=== PATIENT | female | born 1965 | race Caucasian/White ===

== ENCOUNTER → 2017-02-24 | Outpatient (CLI) | payer OTHER ==
[~2017-02-24] MED LIST: LEVO125T5 PO
== END | disposition home or self-care (01) ==
LOC: RAD 16:40
PROVIDERS: ATTEND Nurse Practitioner Primary Care
DX: S69.91XA Unspecified injury of right wrist, hand and finger(s), initial encounter (principal); E03.9 Hypothyroidism, unspecified; R31.9 Hematuria, unspecified; R78.2 Finding of cocaine in blood; E88.1 Lipodystrophy, not elsewhere classified; G43.909 Migraine, unspecified, not intractable, without status migrainosus; M54.40 Lumbago with sciatica, unspecified side; M54.2 Cervicalgia; F32.9 Major depressive disorder, single episode, unspecified; R63.5 Abnormal weight gain; R59.9 Enlarged lymph nodes, unspecified; Z79.890 Hormone replacement therapy; X58.XXXA Exposure to other specified factors, initial encounter; Y93.89 Activity, other specified; Y92.89 Other specified places as the place of occurrence of the external cause; Y99.8 Other external cause status

== ENCOUNTER → 2017-06-30 | Outpatient (CLI) | payer OTHER | END | disposition home or self-care (01) | LOC: CFH 12:57 | PROVIDERS: ATTEND Physician Assistant | DX: Z12.31 Encounter for screening mammogram for malignant neoplasm of breast (principal) | CPT/HCPCS: G0202 ==

== ENCOUNTER → 2017-11-03 | Outpatient (CLI) | payer OTHER | END | disposition home or self-care (01) | LOC: CFH 12:50 | PROVIDERS: ATTEND Physician Assistant | DX: M25.551 Pain in right hip (principal); M25.552 Pain in left hip; E03.9 Hypothyroidism, unspecified; R31.9 Hematuria, unspecified; E78.2 Mixed hyperlipidemia; E88.81 Metabolic syndrome and other insulin resistance; G43.909 Migraine, unspecified, not intractable, without status migrainosus; M54.40 Lumbago with sciatica, unspecified side; M54.2 Cervicalgia; F32.9 Major depressive disorder, single episode, unspecified; R63.5 Abnormal weight gain; R59.9 Enlarged lymph nodes, unspecified; Z79.890 Hormone replacement therapy; S62.609D Fracture of unspecified phalanx of unspecified finger, subsequent encounter for fracture with routine healing; F06.4 Anxiety disorder due to known physiological condition; X58.XXXD Exposure to other specified factors, subsequent encounter | CPT/HCPCS: 73523 ==

== ENCOUNTER 2018-01-21 09:51 | Emergency (ER) | payer OTHER ==
[~2018-01-21] VITALS: Ht 162.6 cm; Wt 80.9 kg
[2018-01-21 09:53] VITALS: BP 155/106
[2018-01-21] MEDS ORDERED: HYDR-3307 PO (10:48)
[2018-01-21] MEDS ORDERED: MELO15TA24 PO (10:48)
[2018-01-21] MEDS ORDERED: MINO100T2 PO (10:48)
[2018-01-21] MEDS ORDERED: KETOROLAC 30 MG/1 ML ONE (10:52)
[2018-01-21] MEDS ORDERED: METHOCARBAMOL 750 MG TABLET ONE (10:52)
[2018-01-21] MEDS ORDERED: METHOCARBAMOL 750 MG TABLET PO ONE (11:00)
[2018-01-21] MEDS ORDERED: KETOROLAC 30 MG/1 ML IM ONE (11:00)
== END 2018-01-21 12:14 | disposition home or self-care (01) ==
LOC: ED 11:55
DX: S16.1XXA Strain of muscle, fascia and tendon at neck level, initial encounter (principal); G89.11 Acute pain due to trauma; M54.6 Pain in thoracic spine; M54.5 Low back pain; F17.200 Nicotine dependence, unspecified, uncomplicated; Y04.8XXA Assault by other bodily force, initial encounter; Y93.89 Activity, other specified; Y99.8 Other external cause status; Y92.89 Other specified places as the place of occurrence of the external cause
CPT/HCPCS: 72050; 72072; 72110; 96372; 99284; J1885

== ENCOUNTER 2018-12-13 17:24 | Emergency (ER) | payer OTHER ==
[~2018-12-13] VITALS: Ht 162.6 cm; Wt 84.0 kg
[~2018-12-13 17:24] MED LIST changes: +HYDR-3307 PO; +MELO15TA24 PO; +MINO100T2 PO
[2018-12-13] MEDS ORDERED: DIPHENHYDRAMINE 50 MG/ML, 1ML ONE (17:55)
[2018-12-13] MEDS ORDERED: METOCLOPRAMIDE 5 MG/ML, 2ML ONE (17:55)
[2018-12-13] MEDS ORDERED: DIPHENHYDRAMINE 50 MG/ML, 1ML IVPush ONE (18:00)
[2018-12-13] MEDS ORDERED: METOCLOPRAMIDE 5 MG/ML, 2ML IVPush ONE (18:00)
[2018-12-13] MEDS ORDERED: BUPIVACAINE/PF-EPI 0.5% 1:200K INFIL ONE ×2 (18:00→18:30)
[2018-12-13] MEDS ORDERED: SODIUM CHLORIDE 0.9% 1,000ML IVBOLUS ONE (18:00)
--- NOTE | 2018-12-13 18:55 | NUR ---
REPORT RECEIVED FROM MAGALY MACKEY. ASSUMED CARE OF PT
[2018-12-13] MEDS ORDERED: KETOROLAC 60 MG/2 ML IVPush ONE (19:00)
--- NOTE | 2018-12-13 19:05 | NUR ---
PT AMBULATED TO BATHROOM AND BACK WITH STEADY GAIT
[2018-12-13 19:22] VITALS: BP 147/80
[2018-12-13] MEDS ORDERED: KETOROLAC 30 MG/1 ML ONE (19:32)
--- NOTE | 2018-12-13 19:39 | NUR ---
PT MEDICATED PER eMAR
--- NOTE | 2018-12-13 20:06 | NUR ---
Patient/Caregiver given discharge instructions and they have confirmed that they understand the instructions. Patient ambulatory with steady gait.
== END 2018-12-13 20:08 | disposition home or self-care (01) ==
LOC: ED 18:20
DX: G44.211 Episodic tension-type headache, intractable (principal); E78.00 Pure hypercholesterolemia, unspecified
CPT/HCPCS: 64405; 96374; 96375; 99284; J1200; J1885; J2765; J7030; 64450

== ENCOUNTER 2019-04-04 10:11 | Emergency (ER) | payer OTHER ==
[~2019-04-04] VITALS: Ht 162.6 cm; Wt 82.0 kg
[2019-04-04] MEDS ORDERED: HYDROcodone/APAP 10/325 MG TABLET PO ONE (11:00)
[2019-04-04] MEDS ORDERED: KETOROLAC 30 MG/1 ML IM ONE (11:00)
[2019-04-04] MEDS ORDERED: KETOROLAC 60 MG/2 ML ONE (11:10)
[2019-04-04] MEDS ORDERED: HYDROcodone/APAP 10/325 MG TABLET ONE (11:11)
[2019-04-04 12:01] VITALS: BP 141/86
[2019-04-04] MEDS ORDERED: PARO37.52 PO (12:10)
--- NOTE | 2019-04-04 12:12 | NUR ---
Patient/Caregiver given discharge instructions and they have confirmed that they understand the instructions. Patient ambulatory with steady gait.
== END 2019-04-04 12:13 | disposition home or self-care (01) ==
LOC: ED 12:07
DX: M54.42 Lumbago with sciatica, left side (principal); E78.00 Pure hypercholesterolemia, unspecified; G43.909 Migraine, unspecified, not intractable, without status migrainosus
CPT/HCPCS: 96372; 99283; J1885; J7512

== ENCOUNTER 2019-04-12 13:53 | Outpatient (CLI) | payer OTHER | END 2019-04-12 23:59 | disposition home or self-care (01) | LOC: CFH 13:53 | PROVIDERS: ATTEND Physical Medicine & Rehabilitation Pain Medicine | DX: M47.815 Spondylosis without myelopathy or radiculopathy, thoracolumbar region (principal); M47.817 Spondylosis without myelopathy or radiculopathy, lumbosacral region | CPT/HCPCS: 72148 ==

== ENCOUNTER 2019-04-17 13:11 | Emergency (ER) | payer OTHER ==
[~2019-04-17] VITALS: Ht 162.6 cm; Wt 82.6 kg
[~2019-04-17 13:11] MED LIST changes: +PARO37.52 PO
== END 2019-04-17 14:48 | disposition home or self-care (01) ==
LOC: ED 14:40
DX: S92.255A Nondisplaced fracture of navicular [scaphoid] of left foot, initial encounter for closed fracture (principal); S80.212A Abrasion, left knee, initial encounter; E78.00 Pure hypercholesterolemia, unspecified; G89.29 Other chronic pain; W01.0XXA Fall on same level from slipping, tripping and stumbling without subsequent striking against object, initial encounter; Y93.89 Activity, other specified; Y92.410 Unspecified street and highway as the place of occurrence of the external cause; Y99.8 Other external cause status
CPT/HCPCS: 29125; 99283

== ENCOUNTER 2019-08-09 12:47 | Emergency (ER) | payer OTHER ==
[~2019-08-09] VITALS: Ht 162.6 cm; Wt 81.5 kg
[~2019-08-09 12:47] MED LIST changes: -HYDR-3307 PO; +HYDR-36 PO
[2019-08-09 13:05] VITALS: BP 156/89
== END 2019-08-09 13:51 | disposition home or self-care (01) ==
LOC: ED 13:25
DX: M79.642 Pain in left hand (principal); E78.00 Pure hypercholesterolemia, unspecified; G43.909 Migraine, unspecified, not intractable, without status migrainosus; G89.29 Other chronic pain; M54.9 Dorsalgia, unspecified
CPT/HCPCS: 99283

== ENCOUNTER → 2019-12-10 | Outpatient (CLI) | payer OTHER | END | disposition home or self-care (01) | LOC: CFH 12:48 → EDSTATUS 13:15 | PROVIDERS: ATTEND Orthopaedic Surgery | DX: M85.842 Other specified disorders of bone density and structure, left hand (principal) ==

== ENCOUNTER 2020-02-14 23:35 | Emergency (ER) | payer OTHER ==
[~2020-02-14] VITALS: Ht 162.6 cm; Wt 78.4 kg
--- NOTE | 2020-02-14 23:50 | NUR ---
TO SEE/ ASSESS PT AT THIS TIME
[2020-02-15 00:29] LABS: BASOPHILS # (AUTO) 0.04 x10^3/uL (0-0.1); BASOPHILS % (AUTO) 1 % (0-1); EOSINOPHILS # (AUTO) 0.19 x10^3/uL (0-0.4); EOSINOPHILS % (AUTO) 3 % (1-7); LYMPHOCYTES # (AUTO) 2.76 x10^3/uL (1-3.4); LYMPHOCYTES % (AUTO) 37 % (22-44); MD NO; MEAN CORPUSCULAR HEMOGLOBIN 31.9 pg (27.0-34.8); MEAN CORPUSCULAR HGB CONC 33.7 g/dL (32.4-35.8); MEAN CORPUSCULAR VOLUME 94.7 fL (80-100); MEAN PLATELET VOLUME 9.3 fL (7.4-10.4); MONOCYTES # (AUTO) 0.62 x10^3/uL (0.2-0.8); MONOCYTES % (AUTO) 8 % (2-9); NEUTROPHILS # (AUTO) 3.94 x10^3/uL (1.8-6.8); NEUTROPHILS % (AUTO) 52 % (42-75); PLATELET COUNT 265 x10^3/uL (130-400); RED BLOOD COUNT 4.32 x10^6/uL (3.82-5.3); RED CELL DISTRIBUTION WIDTH 12.9 % (9.6-15.2)
[2020-02-15 00:34] LABS: ALANINE AMINOTRANSFERASE 23 U/L (12-78); ALBUMIN 3.3 g/dL (3.4-5.0); ANION GAP 11 mmol/L (5-15); CALCIUM 8.3 mg/dL (8.5-10.1); CHLORIDE 113 mmol/L (98-107); CREATININE 0.86 mg/dL (0.55-1.02)
[2020-02-15 00:39] LABS: ALKALINE PHOSPHATASE 130 U/L (45-117); BILIRUBIN,TOTAL 0.2 mg/dL (0.2-1.0); TOTAL PROTEIN 6.8 g/dL (6.4-8.2); TROPONIN I < 0.015 ng/mL (0.000-0.045)
--- NOTE | 2020-02-15 01:06 | NUR ---
URINE SENT TO LAB
[2020-02-15 01:12] LABS: MICROSCOPIC AUTO
[2020-02-15 01:16] LABS: CULTURE INDICATED? YES
[2020-02-15 01:43] VITALS: BP 146/86
== END 2020-02-15 01:45 | disposition home or self-care (01) ==
LOC: ED 02-15 00:09
DX: B34.9 Viral infection, unspecified (principal); R19.7 Diarrhea, unspecified; E78.00 Pure hypercholesterolemia, unspecified; R06.00 Dyspnea, unspecified; R94.31 Abnormal electrocardiogram [ECG] [EKG]; Z86.39 Personal history of other endocrine, nutritional and metabolic disease
CPT/HCPCS: 36415; 71045; 80053; 81001; 83690; 84484; 85025; 87086; 93005; 99285

== ENCOUNTER 2020-04-16 22:54 | Emergency (ER) | payer OTHER ==
[~2020-04-16] VITALS: Ht 162.6 cm; Wt 78.3 kg
[~2020-04-16 22:54] MED LIST changes: +HYDR-3246 PO; -HYDR-36 PO
[2020-04-16 22:56] VITALS: BP 128/80
--- NOTE | 2020-04-16 23:07 | NUR ---
This is a 55 yo female coming in for left thumb "jammed". Patient has reconstructive surgery on left wrist 6 weeks ago after a fall, hard cast removed last week and had soft brace on. Patient was getting up and "jammed my thumb". C/O numbness around thumb joint, non tender to palpation, pain with movement, took pain medication prior to arrival, prescribed after surgery. KENTON Bowden in room. Call light in reach
--- NOTE | 2020-04-16 23:49 | NUR ---
Patient given discharge instructions and they have confirmed that they understand the instructions. Patient ambulatory with steady gait.
== END 2020-04-16 23:51 | disposition home or self-care (01) ==
LOC: ED 23:24
DX: S60.012A Contusion of left thumb without damage to nail, initial encounter (principal); E78.00 Pure hypercholesterolemia, unspecified; G89.29 Other chronic pain; W23.0XXA Caught, crushed, jammed, or pinched between moving objects, initial encounter; Y93.89 Activity, other specified; Y92.009 Unspecified place in unspecified non-institutional (private) residence as the place of occurrence of the external cause; Y99.8 Other external cause status
CPT/HCPCS: 99283

== ENCOUNTER 2020-12-23 09:22 | Emergency (ER) | payer OTHER ==
[~2020-12-23] VITALS: Ht 162.6 cm; Wt 71.4 kg
[~2020-12-23 09:22] MED LIST changes: -HYDR-3246 PO; +HYDR-3248 PO
[2020-12-23] MEDS ORDERED: ONDANSETRON ODT 4 MG ONE (10:08)
[2020-12-23] MEDS ORDERED: DIAZEPAM 5 MG TABLET ONE (10:08)
[2020-12-23] MEDS ORDERED: KETOROLAC 30 MG/1 ML ONE (10:09)
--- NOTE | 2020-12-23 10:24 | NUR ---
pt back from xray. admin meds
[2020-12-23] MEDS ORDERED: ONDANSETRON ODT 4 MG PO ONE (10:30)
[2020-12-23] MEDS ORDERED: KETOROLAC 30 MG/1 ML IM ONE (10:30)
[2020-12-23] MEDS ORDERED: DIAZEPAM 5 MG TABLET PO ONE (10:30)
[2020-12-23 10:58] LABS: MICROSCOPIC AUTO
[2020-12-23 11:24] VITALS: BP 123/79
--- NOTE | 2020-12-23 11:25 | NUR ---
pt walked self with steady gait. given rx. if s&s worsen return to er.
== END 2020-12-23 11:34 | disposition home or self-care (01) ==
LOC: ED 11:25
DX: S39.012A Strain of muscle, fascia and tendon of lower back, initial encounter (principal); X58.XXXA Exposure to other specified factors, initial encounter; Y93.89 Activity, other specified; Y92.89 Other specified places as the place of occurrence of the external cause; Y99.8 Other external cause status
CPT/HCPCS: 72110; 81001; 87086; 96372; 99284; J1885; Q0162; 87147

== ENCOUNTER 2021-01-10 17:54 | Emergency (ER) | payer OTHER ==
[~2021-01-10] VITALS: Ht 162.6 cm; Wt 71.3 kg
--- NOTE | 2021-01-10 18:30 | NUR ---
Pt reports intense pain in the R side that her sweat and feel like she was going to pass out and had a hard time breathing. Pt proceeded to walk out of the [place] to sit on the stairs and get fresh air until she felt okay enough to drive here. Pain onset 30 mins ago. Describes pain as really sharp and sudden. Connected to BP and O2 monitors, positioned for comfort, ANALILIA LANIER.
[2021-01-10] MEDS ORDERED: HYDROmorphone 1 MG/ML, 1ML INJ ONE (18:57)
[2021-01-10] MEDS ORDERED: ONDANSETRON 2MG/ML, 2ML ONE (18:57)
[2021-01-10] MEDS ORDERED: HYDROmorphone 1 MG/ML, 1ML INJ IV ONE (19:00)
[2021-01-10] MEDS ORDERED: ONDANSETRON 2MG/ML, 2ML IVPush ONE (19:00)
[2021-01-10 19:03] LABS: BASOPHILS % (AUTO) 1 % (0-1); EOSINOPHILS % (AUTO) 0 % (1-7); LYMPHOCYTES % (AUTO) 20 % (22-44); MEAN CORPUSCULAR HEMOGLOBIN 32.7 pg (27.0-34.8); MEAN CORPUSCULAR HGB CONC 34.3 g/dL (32.4-35.8); MEAN PLATELET VOLUME 9.3 fL (7.4-10.4); MONOCYTES % (AUTO) 8 % (2-9); NEUTROPHILS % (AUTO) 72 % (42-75); PLATELET COUNT 211 x10^3/uL (130-400); RED BLOOD COUNT 4.55 x10^6/uL (3.82-5.3); RED CELL DISTRIBUTION WIDTH 13.1 % (9.6-15.2)
[2021-01-10 19:05] LABS: MD NO
[2021-01-10 19:07] LABS: ALANINE AMINOTRANSFERASE 23 U/L (12-78); ALBUMIN 3.6 g/dL (3.4-5.0); ANION GAP 6 mmol/L (5-15); CALCIUM 9.4 mg/dL (8.5-10.1); CHLORIDE 109 mmol/L (98-107); CREATININE 0.76 mg/dL (0.55-1.02)
[2021-01-10 19:09] LABS: ALKALINE PHOSPHATASE 138 U/L (45-117); BILIRUBIN,TOTAL 0.7 mg/dL (0.2-1.0); TOTAL PROTEIN 7.3 g/dL (6.4-8.2)
--- NOTE | 2021-01-10 19:10 | NUR ---
ASSUMED CARE OF PATIENT. REPORT GIVEN FROM MAGALY LAMBERT
[2021-01-10 19:29] LABS: MICROSCOPIC AUTO
--- NOTE | 2021-01-10 19:48 | NUR ---
pt went to CT
--- NOTE | 2021-01-10 20:00 | NUR ---
PT BACK FROM CT. PT RESTING IN ROOM. NO ACUTE DISTRESS NOTED. CALL LIGHT IN PLACE. WILL CONTINUE TO MONITOR.
[2021-01-10 21:20] VITALS: BP 129/75
--- NOTE | 2021-01-10 21:21 | NUR ---
PT IS A&O X4, PT REPORTS SHE HAS A RIDE HOME. VS STABLE. NO ACUTE DISTRESS NOTED. PT DISCHARGED PER KENTON QUIROS.
[2021-01-10] MEDS ORDERED: OMNIPAQUE 350 MG/ML, 100ML BOTTLE ONE (23:45)
== END 2021-01-10 21:23 | disposition home or self-care (01) ==
LOC: ED 20:46
DX: N30.01 Acute cystitis with hematuria (principal); Z90.710 Acquired absence of both cervix and uterus; Z90.722 Acquired absence of ovaries, bilateral
CPT/HCPCS: 36415; 74177; 80053; 81001; 83690; 85025; 87086; 96374; 96375; 99285; J1170; J2405; Q9967; 87147